=== PATIENT | female | born 1995 | race Two or more races ===

== ENCOUNTER 2022-04-03 17:43 | Emergency (ER) | payer OTHER ==
[~2022-04-03] VITALS: Ht 172.7 cm; Wt 92.1 kg
[2022-04-03] MEDS ORDERED: PRENA1 CHEW TA1.4 MG PO (17:57)
[2022-04-03] MEDS ORDERED: PEPCID AC20 MG PO (22:03)
== END 2022-04-03 22:08 | disposition home or self-care (01) ==
LOC: ER 17:43
DX: K52.9 Noninfective gastroenteritis and colitis, unspecified (principal); R10.13 Epigastric pain

== ENCOUNTER 2022-04-16 02:08 | Emergency (ER) | payer OTHER ==
[~2022-04-16] VITALS: Ht 172.7 cm; Wt 91.6 kg
[~2022-04-16 02:08] MED LIST: PEPCID AC20 MG PO; PRENA1 CHEW TA1.4 MG PO
== END 2022-04-16 15:30 | disposition home or self-care (01) ==
LOC: ER 02:08
DX: O99.611 Diseases of the digestive system complicating pregnancy, first trimester (principal); Z3A.13 13 weeks gestation of pregnancy; K80.20 Calculus of gallbladder without cholecystitis without obstruction; R10.84 Generalized abdominal pain; R11.0 Nausea

== ENCOUNTER 2022-06-20 08:08 | Outpatient (CLI) | payer OTHER | END 2022-06-20 09:51 | disposition home or self-care (01) | LOC: PRENATAL 08:08 | PROVIDERS: ATTEND Obstetrics & Gynecology Maternal & Fetal Medicine | DX: O35.0XX0 Maternal care for (suspected) central nervous system malformation in fetus, not applicable or unspecified (principal); O35.3XX0 Maternal care for (suspected) damage to fetus from viral disease in mother, not applicable or unspecified; Z3A.22 22 weeks gestation of pregnancy ==

== ENCOUNTER 2022-10-10 13:00 | Inpatient (IN) | payer OTHER ==
[~2022-10-10] VITALS: Ht 172.7 cm; Wt 97.5 kg
== END 2022-10-20 17:45 | disposition home or self-care (01) | DRG 807 ==
LOC: OB/GYN 10-18 02:44 → LDR 10-18 02:44 → OB/GYN 10-18 15:23 → O/R 10-18 16:55 → OB/GYN 10-18 16:56
PROVIDERS: ADMIT Obstetrics & Gynecology; ATTEND Obstetrics & Gynecology
PROC: 10E0XZZ Delivery of Products of Conception, External Approach (ICD-10-PCS; principal; 2022-10-18)
PROC: 0UQG7ZZ Repair Vagina, Via Natural or Artificial Opening (ICD-10-PCS; 2022-10-18)
PROC: 4A1HXCZ Monitoring of Products of Conception, Cardiac Rate, External Approach (ICD-10-PCS; 2022-10-18)
DX: O71.4 Obstetric high vaginal laceration alone (principal); Z37.0 Single live birth; O99.824 Streptococcus B carrier state complicating childbirth; Z3A.39 39 weeks gestation of pregnancy; Z20.822 Contact with and (suspected) exposure to COVID-19